=== PATIENT | female | born 1965 | race Caucasian/White ===

== ENCOUNTER 2025-07-01 14:04 | Outpatient (CLI) | payer OTHER, SELFPAY ==
--- NOTE | 2025-07-01 14:21 | XR_ITS ---
WS: [id number] Lumbar spine, 5 views including both obliques, 07/01/2025 Clinical Data: LOW BACK PAIN Comparison: None. Findings: No compression fractures or subluxation is seen. There is disc narrowing at L5- S1 with anterior osteophytes. The transverse processes and SI joints are normal. The oblique images show no spondylolysis. XR/XR lumbar spine min 4V [id number] Impression: 1. Osteoarthritis with disc narrowing at L5-S1. 2. No spondylolysis on oblique images.
== END 2025-07-01 14:05 | disposition home or self-care (01) ==
PROVIDERS: PCP Family Medicine; Visit Provider Family Medicine
DX: M54.50 Low back pain, unspecified (principal); M48.07 Spinal stenosis, lumbosacral region
CPT/HCPCS: 72110

== ENCOUNTER 2025-07-07 11:16 | Outpatient (CLI) | payer OTHER, SELFPAY ==
--- NOTE | 2025-07-07 11:22 | MM_ITS ---
WS: [email or web address] SCREENING DIGITAL BREAST TOMOSYNTHESIS MAMMOGRAM WITH CAD HISTORY: SCREENING COMPARISON: 11/04/2022, 10/25/2022 Bilateral CC and MLO with tomosynthesis and synthetic mammography submitted. Computer aided detection analyzed. Breast composition: The breasts are heterogeneously dense, which may obscure small masses. New partially obscured mass in the medial inferior RIGHT breast measures 5 x 7 x 7 mm. The remaining asymmetries are stable. No distortion. No suspicious grouping of calcification. MM/MM scr BI tomosynthesis [id number] IMPRESSION: BI-RADS: 0 - Incomplete: Need additional imaging evaluation FOLLOW UP: Need Additional Imaging RIGHT breast: Spot compression views (CC and MLO). True ML. Ultrasound to follo w if abnormality persists.
== END 2025-07-07 11:17 | disposition home or self-care (01) ==
LOC: RAD 11:17
PROVIDERS: PCP Family Medicine; Visit Provider Family Medicine
DX: Z12.31 Encounter for screening mammogram for malignant neoplasm of breast (principal); R92.333 Mammographic heterogeneous density, bilateral breasts; N63.10 Unspecified lump in the right breast, unspecified quadrant; N64.89 Other specified disorders of breast
CPT/HCPCS: 77063; 77067

== ENCOUNTER 2025-08-12 12:00 | Outpatient (CLI) | payer OTHER, SELFPAY ==
--- NOTE | 2025-08-12 12:08 | MM_ITS ---
WS: [email or web address] ADDITIONAL VIEWS RIGHT MAMMOGRAM WITH DIGITAL BREAST TOMOSYNTHESIS. RIGHT BREAST ULTRASOUND HISTORY: R ABNORMAL MAMMOGRAM COMPARISON: 07/07/2025, 11/04/2022, 10/25/2022 RIGHT MAMMOGRAM: Spot compression views and true ML with digital breast tomosynthesis and SM. Breast composition: The breasts are heterogeneously dense, which may obscure small masses. Asymmetry persists in the medial inferior RIGHT breast measuring 4 x 5 x 6 mm. This mass is at a middle depth and nearly isoechoic dense to the remaining breast parenchyma. RIGHT BREAST ULTRASOUND 2-D and color Doppler imaging submitted. Simple cyst identified at 4:00, 1 cm the nipple measures 0.6 x 0.8 x 0.3 cm. No solid component or increased vascularity. Cyst corresponds to the mammographic abnormality. MM/MM diag RT tomosynthesis [id number] IMPRESSION: BI-RADS: 2 - Benign FOLLOW UP: 1 Year Follow-up Return to annual screening mammography. Benign cyst RIGHT breast.
--- NOTE | 2025-08-12 12:52 | MR_ITS ---
WS: [id number] MRI LUMBAR SPINE NONCONTRAST HISTORY: CHRONIC LOW BACK PAIN COMPARISON: None available. TECHNIQUE: Sagittal and axial multisequence imaging is submitted. Mild increase in thoracic kyphosis. Mild disc bulging at several levels. No high-grade stenosis in the thoracic or cervical spines. Normal lumbar alignment. Advanced degenerative disc space narrowing at L5-S1. No acute fractures. Conus terminates normally at L1. L1-L2: Mild annular disc bulging. No stenosis. L2-L3: Mild disc bulge and ligamentum flavum and facet arthritis. No stenosis. L3-L4: Mild annular disc bulging with moderate ligamentum flavum and facet arthritis. Small amount of fluid in the LEFT facet joint. No significant stenosis. L4-L5: Mild disc bulging with a central protrusion and annular fissure. Moderate ligamentum flavum and facet arthritis. There is encroachment upon the thecal sac. Mild central with bilateral subarticular recess and mild foraminal stenosis. Mild disc contact on the traversing L5 nerve roots. Mild facet joint synovitis noted at L4-5. L5-S1: Diffuse disc bulging with a central disc protrusion. Mild facet and ligamentum flavum hypertrophy. Mild disc contact on the S1 nerve roots, LEFT greater than RIGHT. Mild osteophytic ridging. Bilateral moderate foraminal stenosis. Disc osteophyte contact on the exiting L5 nerve roots. Paravertebral soft tissues are negative. MR/MR lumbar spine wo con* [id number] IMPRESSION: 1. Mild central and bilateral subarticular recess and foraminal stenosis at L4 -5 due to disc and osteophyte disease. There is mild disc contact on the twyla sing L5 nerve roots. 2. Mild facet joint synovitis at L4-5. 3. Moderate bilateral foraminal stenosis at L5-S1 with mild disc osteophyte co ntact on the exiting L5 nerve roots. 4. Central disc protrusion at L5-S1. Minimal disc contact on the S1 nerve root s, LEFT greater than RIGHT.
== END 2025-08-12 12:01 | disposition home or self-care (01) ==
LOC: RAD 12:03
PROVIDERS: PCP Family Medicine; Visit Provider Family Medicine
DX: M51.27 Other intervertebral disc displacement, lumbosacral region (principal); R92.8 Other abnormal and inconclusive findings on diagnostic imaging of breast; M48.061 Spinal stenosis, lumbar region without neurogenic claudication; M25.78 Osteophyte, vertebrae; M65.88 Other synovitis and tenosynovitis, other site; M48.07 Spinal stenosis, lumbosacral region; M40.294 Other kyphosis, thoracic region; R93.7 Abnormal findings on diagnostic imaging of other parts of musculoskeletal system; M51.379 Other intervertebral disc degeneration, lumbosacral region without mention of lumbar back pain or lower extremity pain; M51.369 Other intervertebral disc degeneration, lumbar region without mention of lumbar back pain or lower extremity pain; M24.28 Disorder of ligament, vertebrae; M47.896 Other spondylosis, lumbar region; R92.333 Mammographic heterogeneous density, bilateral breasts; N60.01 Solitary cyst of right breast
CPT/HCPCS: 72148; 76642; 77061; G0279